=== PATIENT | female | born 1940 | race Two or more races ===

== ENCOUNTER 2018-01-19 12:40 | Day surgery (SDC) | payer MEDICARE ==
[~2018-01-19] VITALS: Ht 160 cm; Wt 67.3 kg
[2018-01-19] MEDS ORDERED: LANS30CA37 PO (13:06)
[2018-01-19] MEDS ORDERED: PANT-47 PO (13:07)
[2018-01-19 13:14] VITALS: BP 129/81
[2018-01-19] MEDS ORDERED: MIDAZolam 5mg/5ml vial ONE (13:32)
[2018-01-19] MEDS ORDERED: fentaNYL/PF 50MCG/1 ML 2ML syringe ONE (13:32)
[2018-01-19] MEDS ORDERED: LIDOcaine Viscous 15ml cup ONE (13:33)
[2018-01-19 13:54] VITALS: BP 131/70
[2018-01-19 13:59] VITALS: BP 137/68
[2018-01-19 14:09] VITALS: BP 140/52
[2018-01-19 14:19] VITALS: BP 148/82
== END 2018-01-19 14:30 | disposition home or self-care (01) ==
LOC: GI LAB 12:40
PROVIDERS: ATTEND Internal Medicine Gastroenterology
DX: K29.50 Unspecified chronic gastritis without bleeding (principal); K21.9 Gastro-esophageal reflux disease without esophagitis; Z72.89 Other problems related to lifestyle; Z90.710 Acquired absence of both cervix and uterus; Z79.899 Other long term (current) drug therapy; Z88.8 Allergy status to other drugs, medicaments and biological substances
CPT/HCPCS: 43239; G0500; J2250; J3010; J7030; 88305; 88342; A4620

== ENCOUNTER 2019-01-15 14:28 | Emergency (ER) | payer MEDICARE ==
[~2019-01-15] VITALS: Ht 157.5 cm; Wt 67.0 kg
[~2019-01-15 14:28] MED LIST: LANS30CA37 PO; PANT-47 PO
[2019-01-15 15:39] LABS: CLARITY,URINE CLOUDY (Clear); COLOR,URINE RED (Yellow); UA COLLECTION TYPE CLN CATCH MIDSTREAM
[2019-01-15 15:43] LABS: BACTERIA,URINE FEW /HPF (Neg); MUCUS STRANDS NONE SEEN /LPF (Neg); RBC,URINE TNTC /HPF (0-2); SQUAMOUS EPITHELIAL CELL,UR FEW /LPF (FEW)
--- NOTE | 2019-01-15 15:50 | NUR ---
patient noted with very dark urine.Dr. Chowdhury made aware.
[2019-01-15 17:15] LABS: BASOPHILS # (AUTO) 0.1 X10'3 (0-0.2); BASOPHILS % (AUTO) 1.3 % (0-1); EOSINOPHILS # (AUTO) 0.2 X10'3 (0-0.9); EOSINOPHILS % (AUTO) 2.7 % (0-6); HEMATOCRIT 42.8 % (35.0-45.0); HEMOGLOBIN 14.4 g/dl (12.0-16.0); LYMPHOCYTES # (AUTO) 1.4 X10'3 (1.1-4.8); LYMPHOCYTES % (AUTO) 19.5 % (21-51); MEAN CORPUSCULAR HEMOGLOBIN 33.8 PG (27.0-31.0); MEAN CORPUSCULAR HGB CONC 33.7 g/dL (33.0-36.5); MEAN CORPUSCULAR VOLUME 100.4 FL (78-98); MONOCYTES # (AUTO) 0.2 X10'3 (0-0.9); MONOCYTES % (AUTO) 2.4 % (2-12); NEUTROPHILS # (AUTO) 5.4 X10'3 (1.8-7.7); NEUTROPHILS % (AUTO) 74.1 % (42-75); PLATELET COUNT 210 X10'3 (140-440); RED BLOOD COUNT 4.26 X10'6 (4.20-5.60); RED CELL DISTRIBUTION WIDTH 13.4 % (11.5-14.5); WHITE BLOOD COUNT 7.3 X10'3 (4.5-11.0)
[2019-01-15 17:22] LABS: PARTIAL THROMBOPLASTIN TIME 27 SECONDS (22-32); PROTHROMBIN TIME 10.5 SECONDS (9.0-12.0)
[2019-01-15 17:24] LABS: ALANINE AMINOTRANSFERASE 44 U/L (12-78); ALKALINE PHOSPHATASE 144 IU/L (46-116); ANION GAP 10 (8-16); ASPARTATE AMINO TRANSFERASE 36 U/L (10-37); BILIRUBIN,TOTAL 0.4 MG/DL (0.1-1.0); BLOOD UREA NITROGEN 9 MG/DL (7-18); BUN/CREATININE RATIO 14.5 (6.6-38.0); CALCIUM 9.1 MG/DL (8.5-10.1); CHLORIDE 104 MMOL/L (99-107); CREATININE 0.62 MG/DL (0.40-0.90); GLUCOSE 113 MG/DL (70-104); POTASSIUM 3.6 MMOL/L (3.5-5.1); SODIUM 139 MMOL/L (135-145); TOTAL CARBON DIOXIDE 25.2 MMOL/L (24-32); eGFR > 90 ML/MIN
[2019-01-15] MEDS ORDERED: iohexol 350MG/ML 100ml bottle IV ONE (17:38)
[2019-01-15 21:39] VITALS: BP 183/96
== END 2019-01-15 21:40 | disposition home or self-care (01) ==
LOC: ER 14:29
DX: R31.9 Hematuria, unspecified (principal); K21.9 Gastro-esophageal reflux disease without esophagitis; Z88.8 Allergy status to other drugs, medicaments and biological substances; Z79.899 Other long term (current) drug therapy
CPT/HCPCS: 36415; 74178; 80053; 81001; 85025; 85610; 85730; 87088; 99284; Q9967

== ENCOUNTER 2019-11-07 07:07 | Emergency (ER) | payer MEDICARE ==
[~2019-11-07] VITALS: Ht 157.5 cm; Wt 68.4 kg
[2019-11-07 07:11] VITALS: BP 152/66
[2019-11-07] MEDS ORDERED: ALBU18HF2 INH (07:26)
[2019-11-07] MEDS ORDERED: DOXY100C43 PO (07:26)
== END 2019-11-07 07:51 | disposition home or self-care (01) ==
LOC: ER 07:07
DX: J20.9 Acute bronchitis, unspecified (principal); J02.9 Acute pharyngitis, unspecified; J04.0 Acute laryngitis; J22 Unspecified acute lower respiratory infection; K21.9 Gastro-esophageal reflux disease without esophagitis; Z87.01 Personal history of pneumonia (recurrent); Z88.8 Allergy status to other drugs, medicaments and biological substances; Z79.899 Other long term (current) drug therapy
CPT/HCPCS: 99283

== ENCOUNTER 2020-06-18 07:14 | Emergency (ER) | payer MEDICARE ==
[~2020-06-18] VITALS: Ht 157.5 cm; Wt 67.4 kg
[~2020-06-18 07:14] MED LIST changes: +ALBU18HF2 INH
[2020-06-18 07:28] VITALS: BP 174/75
[2020-06-18] MEDS ORDERED: TETanus/Pertussis (Acell)/Diphther VAC/PF (Tdap-Adult) 0.5ml syringe IMVAC ONE (07:50)
[2020-06-18] MEDS ORDERED: CEPH-572 PO ×2 (08:13→08:17)
[2020-06-18] MEDS ORDERED: acetaminophen 325mg tablet PO ONE (08:20)
[2020-06-18] MEDS ORDERED: cephalexin 500mg capsule PO ONE (08:20)
[2020-06-18] MEDS ORDERED: SULF1TAB49 PO (08:32)
[2020-06-18] MEDS ORDERED: sulfamethoxazole/trimethoprim DS (800/160mg) tablet PO ONE (08:35)
== END 2020-06-18 08:46 | disposition home or self-care (01) ==
LOC: ER 07:15
DX: S91.132A Puncture wound without foreign body of left great toe without damage to nail, initial encounter (principal); K21.9 Gastro-esophageal reflux disease without esophagitis; Z72.89 Other problems related to lifestyle; Z88.8 Allergy status to other drugs, medicaments and biological substances; Z79.899 Other long term (current) drug therapy; X58.XXXA Exposure to other specified factors, initial encounter; Y93.89 Activity, other specified; Y92.89 Other specified places as the place of occurrence of the external cause; Y99.8 Other external cause status
CPT/HCPCS: 73660; 90471; 90715; 99283

== ENCOUNTER 2021-08-11 16:44 | Emergency (ER) | payer MEDICARE ==
[~2021-08-11] VITALS: Ht 152.4 cm; Wt 47.3 kg
[2021-08-11] MEDS ORDERED: acetaminophen 325mg tablet PO STA (18:50)
[2021-08-11] MEDS ORDERED: normal saline 1000ML IV soln IV ONE (18:50)
[2021-08-11 19:15] VITALS: BP 137/77
[2021-08-11 19:32] LABS: BASOPHILS % (AUTO) 0.3 % (0-1); EOSINOPHILS % (AUTO) 0 % (0-6); HEMATOCRIT 43.2 % (35.0-45.0); HEMOGLOBIN 15.3 g/dl (12.0-16.0); LYMPHOCYTES # (AUTO) 0.5 X10'3 (1.1-4.8); LYMPHOCYTES % (AUTO) 6.3 % (21-51); MEAN CORPUSCULAR HEMOGLOBIN 35.6 PG (27.0-31.0); MEAN CORPUSCULAR HGB CONC 35.4 g/dL (33.0-36.5); MEAN CORPUSCULAR VOLUME 100.6 FL (78-98); MEAN PLATELET VOLUME 8.1 FL (7.4-10.4); MONOCYTES # (AUTO) 0.2 X10'3 (0-0.9); MONOCYTES % (AUTO) 3.1 % (2-12); NEUTROPHILS % (AUTO) 90.3 % (42-75); PLATELET COUNT 174 X10'3 (140-440); RED CELL DISTRIBUTION WIDTH 13.2 % (11.5-14.5); WHITE BLOOD COUNT 7.8 X10'3 (4.5-11.0)
[2021-08-11 19:50] LABS: ALANINE AMINOTRANSFERASE 30 U/L (12-78); ALBUMIN 3.8 G/DL (3.4-5.0); ALBUMIN/GLOBULIN RATIO 0.8 (1.1-1.5); ALKALINE PHOSPHATASE 126 IU/L (46-116); ANION GAP 12 (8-16); ASPARTATE AMINO TRANSFERASE 42 U/L (10-37); BILIRUBIN,TOTAL 0.4 MG/DL (0.1-1.0); BLOOD UREA NITROGEN 8 MG/DL (7-18); BUN/CREATININE RATIO 9.9 (6.6-38.0); CALCIUM 8.6 MG/DL (8.5-10.1); CHLORIDE 101 MMOL/L (99-107); CREATININE 0.81 MG/DL (0.40-0.90); GLUCOSE 134 MG/DL (70-104); MAGNESIUM 1.8 MG/DL (1.5-2.4); SODIUM 137 MMOL/L (135-145); TOTAL CARBON DIOXIDE 24.4 MMOL/L (24-32); TOTAL PROTEIN 8.7 G/DL (6.4-8.2); eGFR 68 ML/MIN
[2021-08-11 19:54] LABS: POTASSIUM 2.9 MMOL/L (3.5-5.1)
--- NOTE | 2021-08-11 19:56 | NUR ---
RECIEVED CALL FROM LAB. CRITICAL LAB VALUE FOR POTASSIUM GIVEN TO RN AND ESTELLA PAREDES.
[2021-08-11] MEDS ORDERED: potassium Cl 10 mEq/100mL bag IV ONE (20:35)
[2021-08-11] MEDS ORDERED: potassium Cl 20 mEq SR tablet PO ONE (20:35)
[2021-08-11] MEDS ORDERED: POTA10CA44 PO (22:32)
--- NOTE | 2021-08-11 22:45 | NUR ---
Given and understands d/c instructions. IV d/c'd, catheter was intact. Ambulatory with a steady gait.
[2021-08-11 23:18] LABS: CLARITY,URINE CLEAR (Clear); COLOR,URINE YELLOW (Yellow); GLUCOSE, URINE NEGATIVE (Neg); KETONES,URINE NEGATIVE (Neg); NITRITES, URINE NEGATIVE (Neg); PROTEIN,URINE NEGATIVE (Neg); UA COLLECTION TYPE NON-SPECIFIED
[2021-08-11 23:19] LABS: LEUKOCYTE ESTERASE ,URINE NEGATIVE (Neg); UROBILINOGEN,URINE 0.2 E.U/dL (0.2-1.0)
[2021-08-11 23:20] LABS: BACTERIA,URINE NONE SEEN /HPF (Neg); OCCULT BLOOD,URINE TRACE-LYSED (Neg); RBC,URINE 0-2 /HPF (0-2); SQUAMOUS EPITHELIAL CELL,UR FEW /LPF (FEW); WBC,URINE NONE SEEN /HPF (0-4)
== END 2021-08-11 22:45 | disposition home or self-care (01) ==
LOC: ER 16:45
DX: B34.9 Viral infection, unspecified (principal); R19.7 Diarrhea, unspecified; Z20.822 Contact with and (suspected) exposure to COVID-19
CPT/HCPCS: 36415; 71045; 80053; 81001; 83605; 83735; 84145; 85025; 87040; 87635; 93005; 96365; 99285; C9803; J3480; J7030

== ENCOUNTER 2023-01-07 07:26 | Emergency (ER) | payer MEDICARE ==
[~2023-01-07] VITALS: Ht 157.5 cm; Wt 63.6 kg
[2023-01-07 08:26] LABS: BASOPHILS % (AUTO) 0.6 % (0-1); EOSINOPHILS # (AUTO) 0.1 X10'3 (0-0.9); HEMATOCRIT 44.8 % (35.0-45.0); HEMOGLOBIN 15.3 g/dl (12.0-16.0); LYMPHOCYTES # (AUTO) 0.9 X10'3 (1.1-4.8); LYMPHOCYTES % (AUTO) 12.4 % (21-51); MEAN CORPUSCULAR HEMOGLOBIN 34.6 PG (27.0-31.0); MEAN CORPUSCULAR HGB CONC 34.1 g/dL (33.0-36.5); MEAN CORPUSCULAR VOLUME 101.4 FL (78-98); MEAN PLATELET VOLUME 8.2 FL (7.4-10.4); MONOCYTES # (AUTO) 0.2 X10'3 (0-0.9); MONOCYTES % (AUTO) 2.8 % (2-12); NEUTROPHILS # (AUTO) 6.1 X10'3 (1.8-7.7); NEUTROPHILS % (AUTO) 83.2 % (42-75); PLATELET COUNT 205 X10'3 (140-440); RED BLOOD COUNT 4.42 X10'6 (4.20-5.60); RED CELL DISTRIBUTION WIDTH 13.2 % (11.5-14.5); WHITE BLOOD COUNT 7.3 X10'3 (4.5-11.0)
[2023-01-07 09:02] LABS: ALANINE AMINOTRANSFERASE 33 U/L (12-78); ALBUMIN 4.1 G/DL (3.4-5.0); ALKALINE PHOSPHATASE 127 IU/L (46-116); ANION GAP 9 (8-16); ASPARTATE AMINO TRANSFERASE 33 U/L (10-37); BILIRUBIN,TOTAL 0.5 MG/DL (0.1-1.0); BLOOD UREA NITROGEN 12 MG/DL (7-18); BUN/CREATININE RATIO 16.9 (10.0-20.0); CALCIUM 9.4 MG/DL (8.5-10.1); CHLORIDE 103 MMOL/L (99-107); CREATININE 0.71 MG/DL (0.40-0.90); GLUCOSE 124 MG/DL (70-104); MAGNESIUM 1.9 MG/DL (1.5-2.4); POTASSIUM 3.4 MMOL/L (3.5-5.1); SODIUM 139 MMOL/L (135-145); TOTAL CARBON DIOXIDE 27.5 MMOL/L (24-32); TOTAL PROTEIN 8.3 G/DL (6.4-8.2); eGFR 79 ML/MIN
[2023-01-07] MEDS ORDERED: POTASSIUM BICARB 20meq eff tab 20 MEQ TABLET.EFF PO ONE (09:30)
[2023-01-07 10:40] VITALS: BP 132/79
== END 2023-01-07 10:46 | disposition home or self-care (01) ==
LOC: ER 07:26
DX: H81.10 Benign paroxysmal vertigo, unspecified ear (principal); K21.9 Gastro-esophageal reflux disease without esophagitis; Z88.1 Allergy status to other antibiotic agents; Z88.8 Allergy status to other drugs, medicaments and biological substances; Z79.899 Other long term (current) drug therapy
CPT/HCPCS: 36415; 71045; 80053; 83735; 83880; 84484; 85025; 93005; 99285

== ENCOUNTER 2024-11-25 22:44 | Emergency (ER) | payer MEDICARE ==
[~2024-11-25] VITALS: Ht 157.5 cm; Wt 67.2 kg
[2024-11-25 22:50] VITALS: BP 149/83; PULSE 82; RESP 18; TEMP 98; O2SAT 96
[2024-11-26] MEDS: bacitracin 15gm ointment TP ONE (00:07)
[2024-11-26] MEDS: TETanus/Pertussis (Acell)/Diphther VAC/PF (Tdap-Adult) 0.5ml syringe IMVAC ONE (00:09)
== END 2024-11-26 00:15 | disposition home or self-care (01) ==
LOC: ER 22:45
DX: M79.672 Pain in left foot (principal); K21.9 Gastro-esophageal reflux disease without esophagitis; Z88.1 Allergy status to other antibiotic agents; Z79.899 Other long term (current) drug therapy; Z72.89 Other problems related to lifestyle
CPT/HCPCS: 90715; 99283; G0008; 90471; A6449